=== PATIENT | female | born 1980 | race Caucasian/White ===

== ENCOUNTER 2017-03-14 02:53 | Inpatient (IN) | payer OTHER ==
[2017-03-14] MEDS ORDERED: OBEPIDURAL* 250 ML ONE (04:33)
[2017-03-14 04:48] LABS: Hematocrit 40 % (35-47); Hemoglobin 13.5 g/dl (12.0-16.0); Mean Corpuscular HGB Conc 34 g/dl (31-36); Mean Corpuscular Hemoglobin 30 pg (27-31); Mean Corpuscular Volume 88 fL (80-97); Mean Platelet Volume 7 um3 (7.4-10.4); Red Blood Count 4.51 10^6/ul (4.0-5.4); Red Cell Distribution Width 14 % (10.5-15); White Blood Count 14.9 10^3/ul (3.5-10.8)
[2017-03-14 04:49] LABS: Add Diff/Slide Review? Slide Review Added; Comments Flag Yes
[2017-03-14] MEDS ORDERED: Famotidine TAB* 20 MG PO PRN (05:14)
[2017-03-14] MEDS ORDERED: EPHEDrine (Pressors)* 50 MG/ML VIAL IV PUSH PRN (05:14)
[2017-03-14] MEDS ORDERED: Sodium Citrate/Citric Acid* 15 ML UDC PO PRN (05:14)
[2017-03-14] MEDS: Phenylephrine IV* 40 MCG/ML 10 ML SYRINGE IV PUSH PRN ×5 (05:20→12:19)
[2017-03-14] MEDS ORDERED: OBEPIDURAL* 250 ML EPIDURAL SCH (06:00)
[2017-03-14] MEDS ORDERED: Oxytocin in LR* 0 UNITS/0 ML BAG IVPB ONE (12:26)
[2017-03-14] MEDS ORDERED: Glycerin ADULT SUPP PR PRN (13:43)
[2017-03-14] MEDS ORDERED: Acetaminophen TAB* 325 MG PO PRN (13:43)
[2017-03-14] MEDS: Docusate CAP* 100 MG PO SCH ×2 (15:23→21:12)
[2017-03-14] MEDS ORDERED: Simethicone CHEW TAB* 80 MG PO SCH (17:30)
[2017-03-14] MEDS: Witch Hazel PAD* JAR TOPICAL PRN (21:15)
[2017-03-14] MEDS: Dibucaine 1% 28.35 GM TUBE PR PRN (21:15)
[2017-03-14] MEDS: Ibuprofen TAB* 600 MG PO PRN (22:09)
[2017-03-15 07:42] LABS: Hematocrit 35 % (35-47); Hemoglobin 11.8 g/dl (12.0-16.0); Mean Corpuscular HGB Conc 34 g/dl (31-36); Mean Corpuscular Hemoglobin 30 pg (27-31); Mean Corpuscular Volume 89 fL (80-97); Mean Platelet Volume 7 um3 (7.4-10.4); Red Blood Count 3.89 10^6/ul (4.0-5.4); Red Cell Distribution Width 14 % (10.5-15); White Blood Count 13.9 10^3/ul (3.5-10.8)
[2017-03-15] MEDS: Docusate CAP* 100 MG PO SCH ×3 (08:23→20:50)
[2017-03-15] MEDS: Ibuprofen TAB* 600 MG PO PRN ×3 (08:23→20:28)
[2017-03-15] MEDS ORDERED: Ferrous Gluconate TAB* 324 MG TAB PO SCH (09:00)
[2017-03-16] MEDS: Ibuprofen TAB* 600 MG PO PRN (04:58)
[2017-03-16 08:26] VITALS: BP 114/69
[2017-03-16] MEDS: Witch Hazel PAD* JAR TOPICAL PRN (11:26)
[2017-03-16] MEDS: Dibucaine 1% 28.35 GM TUBE PR PRN (11:26)
--- NOTE | 2017-03-16 11:36 | PTEDU ---
Patient Name: JOSELUIS DEXTER CHI NICHOLSONJOSELUIS selected video: Never Ever Shake a Baby to view on 03/16/2017 at 11:34:52 AM [id number]
== END 2017-03-16 12:39 | disposition home or self-care (01) | DRG 560 ==
LOC: MCHOBOUT 02:53 → MCHOB 02:55
PROVIDERS: ADMIT Midwife; ATTEND Midwife
PROC: 10E0XZZ Delivery of Products of Conception, External Approach (ICD-10-PCS; principal; 2017-03-14)
PROC: 4A1HXCZ Monitoring of Products of Conception, Cardiac Rate, External Approach (ICD-10-PCS; 2017-03-14)
PROC: 0HQ9XZZ Repair Perineum Skin, External Approach (ICD-10-PCS; 2017-03-14)
DX: O69.81X0 Labor and delivery complicated by cord around neck, without compression, not applicable or unspecified (principal); O70.0 First degree perineal laceration during delivery; Z3A.39 39 weeks gestation of pregnancy; Z37.0 Single live birth; O69.89X0 Labor and delivery complicated by other cord complications, not applicable or unspecified; Z82.49 Family history of ischemic heart disease and other diseases of the circulatory system; Z83.3 Family history of diabetes mellitus; Z80.0 Family history of malignant neoplasm of digestive organs
CPT/HCPCS: 36415; 85025; 86850; 86900; 86901; A9270-GY